=== PATIENT | male | born 1945 | race Caucasian/White ===

== ENCOUNTER 2017-01-03 06:59 | Day surgery (SDC) | payer MEDICARE ==
[~2017-01-03 06:59] MED LIST: CENTRUM TABLET1 TAB; CRESTOR; CRESTOR20 MG; GLYBURIDE; GLYBURIDE5 MG; HUMALOG100 U/ML; HYDROCHLOROTHIA25 M1 PO; LANTUS100 U/ML; LEVEMIR100 UNITS/ SC; LISINOPRIL; LISINOPRIL-HC; LISINOPRIL-HCT1 EAC2 PO; NORCO 5-325 TA1 EACH PO; NOVOLOG100 UNITS/; TYLENOL EXTRA500 MG; ZESTORETIC 20/21 TAB
[2017-02-26] MEDS ORDERED: LIPITOR40 M1 PO (15:04)
[2017-02-26] MEDS ORDERED: WOUND VAC (15:10)
== END 2017-01-03 10:40 ==
LOC: SRG 06:59 → SHSB 07:03
PROC: 0HRMXK3 Replacement of Right Foot Skin with Nonautologous Tissue Substitute, Full Thickness, External Approach (ICD-10-PCS; principal; 2017-01-03)
DX: S91.301A Unspecified open wound, right foot, initial encounter (principal); E11.9 Type 2 diabetes mellitus without complications; I10 Essential (primary) hypertension; Z79.4 Long term (current) use of insulin; Z79.899 Other long term (current) drug therapy; Z88.8 Allergy status to other drugs, medicaments and biological substances; Z90.49 Acquired absence of other specified parts of digestive tract; Z98.890 Other specified postprocedural states
CPT/HCPCS: J0171; J1580; J2250; J3370; L4396; Q4104

== ENCOUNTER 2017-01-22 09:32 | Day surgery (SDC) | payer MEDICARE ==
[2017-01-22 16:36] LABS: CREATININE 1.06 mg/dl (0.60-1.30); eGFR VALUE FOR BLACK 81 mL/Min
[2017-01-24] MEDS ORDERED: KEFLEX500 M4 PO (12:38)
[2017-01-24] MEDS ORDERED: COLACE100 M1 PO (15:38)
[2017-02-26] MEDS ORDERED: LIPITOR40 M1 PO (15:04)
[2017-02-26] MEDS ORDERED: WOUND VAC (15:10)
== END 2017-01-25 15:54 | disposition home health service (06) ==
LOC: SHSB 09:32 → BURN 19:00
PROVIDERS: Internal Medicine; Surgery
PROC: 0HRMXK3 Replacement of Right Foot Skin with Nonautologous Tissue Substitute, Full Thickness, External Approach (ICD-10-PCS; principal; 2017-01-22)
DX: T87.89 Other complications of amputation stump (principal); I10 Essential (primary) hypertension; I73.9 Peripheral vascular disease, unspecified; E11.42 Type 2 diabetes mellitus with diabetic polyneuropathy; M19.90 Unspecified osteoarthritis, unspecified site; E66.9 Obesity, unspecified; Z88.8 Allergy status to other drugs, medicaments and biological substances; Z98.49 Cataract extraction status, unspecified eye; Z85.038 Personal history of other malignant neoplasm of large intestine; Z98.890 Other specified postprocedural states; Y83.8 Other surgical procedures as the cause of abnormal reaction of the patient, or of later complication, without mention of misadventure at the time of the procedure
CPT/HCPCS: C1751; G8978-GP-CJ; G8979-GP-CJ; G8980-GP-CJ; J0171; J1580; J1815; J2250; J3370; J7030; Q4104

== ENCOUNTER 2017-02-27 05:29 | Inpatient (IN) | payer MEDICARE ==
[~2017-02-27 05:29] MED LIST changes: +COLACE100 M1 PO; +KEFLEX500 M4 PO; +LIPITOR40 M1 PO; +WOUND VAC
[2017-02-28] MEDS ORDERED: METFORMIN HCL500 M4 PO (15:40)
== END 2017-02-28 13:30 | DRG 624 ==
LOC: SHSA 05:29 → BURN 08:44
PROVIDERS: ADMIT Surgery
PROC: 0HRMX74 Replacement of Right Foot Skin with Autologous Tissue Substitute, Partial Thickness, External Approach (ICD-10-PCS; principal; 2017-02-27)
PROC: 0YBM0ZZ Excision of Right Foot, Open Approach (ICD-10-PCS; 2017-02-27)
PROC: 0HBHXZZ Excision of Right Upper Leg Skin, External Approach (ICD-10-PCS; 2017-02-27)
PROC: 2W1SX6Z Compression of Right Foot using Pressure Dressing (ICD-10-PCS; 2017-02-27)
DX: E11.621 Type 2 diabetes mellitus with foot ulcer (principal); L97.519 Non-pressure chronic ulcer of other part of right foot with unspecified severity; E11.42 Type 2 diabetes mellitus with diabetic polyneuropathy; E11.65 Type 2 diabetes mellitus with hyperglycemia; E66.9 Obesity, unspecified; E78.00 Pure hypercholesterolemia, unspecified; I10 Essential (primary) hypertension; M19.90 Unspecified osteoarthritis, unspecified site; Z85.038 Personal history of other malignant neoplasm of large intestine
CPT/HCPCS: J0171; J0690; J1580; J1650; J1815; J2250; J3010; J3370; J7050

== ENCOUNTER 2017-03-14 08:14 | Inpatient (IN) | payer MEDICARE ==
[~2017-03-14 08:14] MED LIST changes: +METFORMIN HCL500 M4 PO
[2017-03-14 14:53] LABS: CREATININE 1.06 mg/dl (0.60-1.30); eGFR VALUE FOR BLACK 81 mL/Min
[2017-03-16 20:04] LABS: CREATININE 1.41 mg/dl (0.60-1.30); eGFR VALUE FOR BLACK 57 mL/Min
== END 2017-03-21 17:45 | disposition home health service (06) | DRG 903 ==
LOC: SHSA 08:14 → PACU 10:56 → BURN 12:29 → 5EB 03-21 12:04
PROVIDERS: ADMIT Surgery
PROC: 0HRMX74 Replacement of Right Foot Skin with Autologous Tissue Substitute, Partial Thickness, External Approach (ICD-10-PCS; principal; 2017-03-14)
PROC: 05H633Z Insertion of Infusion Device into Left Subclavian Vein, Percutaneous Approach (ICD-10-PCS; 2017-03-15)
PROC: 0JBQ0ZZ Excision of Right Foot Subcutaneous Tissue and Fascia, Open Approach (ICD-10-PCS; 2017-03-15)
DX: T86.821 Skin graft (allograft) (autograft) failure (principal); E11.42 Type 2 diabetes mellitus with diabetic polyneuropathy; E11.51 Type 2 diabetes mellitus with diabetic peripheral angiopathy without gangrene; E11.628 Type 2 diabetes mellitus with other skin complications; E11.65 Type 2 diabetes mellitus with hyperglycemia; Z89.431 Acquired absence of right foot; I10 Essential (primary) hypertension; M19.90 Unspecified osteoarthritis, unspecified site; E66.9 Obesity, unspecified; E78.00 Pure hypercholesterolemia, unspecified; Z85.038 Personal history of other malignant neoplasm of large intestine; Z79.4 Long term (current) use of insulin; Z68.31 Body mass index [BMI] 31.0-31.9, adult
CPT/HCPCS: C1751; J0171; J1580; J1650; J1815; J3010; J3370; J7030